=== PATIENT | male | born 1960 | race Caucasian/White ===

== ENCOUNTER → 2021-07-13 | Outpatient (CLI) | payer OTHER ==
[~2021-07-13] MED LIST: ALLEGRA ALLERGY60 MG PO; ASPIR 8181 MG PO; ATORVASTATIN CA40 MG PO; CLARITIN10 MG PO; EQ STOOL SOFTE1 EACH PO; INTRINSI B12-F1 EACH PO; MULTIPLE VITAM1 EACH PO; VITAMIN D250000 UNIT PO
== END ==
LOC: RAD 10:12
DX: M54.32 Sciatica, left side (principal); M47.816 Spondylosis without myelopathy or radiculopathy, lumbar region
CPT/HCPCS: 72100